=== PATIENT | male | born 1985 | race Caucasian/White ===

== ENCOUNTER 2016-11-02 13:57 | Emergency (ER) | payer OTHER ==
[2016-11-02] MEDS ORDERED: Sodium Chloride 0.9% 1,000 ML PRIMARY IV ONE (14:26)
[2016-11-02] MEDS ORDERED: NORMAL SALINE 10 ML SYRINGE FLUSH IVP PRN (14:26)
[2016-11-02] MEDS ORDERED: TAMSULOSIN 0.4 MG CAPSULE PO ONE (14:26)
[2016-11-02 14:33] VITALS: TEMP 97.7
[2016-11-02 14:51] LABS: BASOPHILS # (AUTO) 0.02 10*3/UL; BASOPHILS % (AUTO) 0.2 % (0-1); EOSINOPHILS % (AUTO) 0.5 % (0-8); HEMATOCRIT 41.8 % (42.0-52.0); HEMOGLOBIN 14.6 g/dL (14.0-18.0); IMM GRAN % (AUTO) 0.2 % (0-5); IMM GRAN# (AUTO) 0.02 10*3/UL; LYMPHOCYTES % (AUTO) 9.5 % (10-50); MEAN CORPUSCULAR HGB CONC 34.9 g/dL (33-37); MONOCYTES # (AUTO) 0.47 10*3/UL (0.3-0.8); NEUTROPHILS # (AUTO) 7.99 10*3/UL; NEUTROPHILS % (AUTO) 84.6 % (50-80); RDW COEFFICIENT OF VARIATION 12.7 % (11.5-14.5); RED BLOOD COUNT 5.04 10^6/uL (4.70-6.10); WHITE BLOOD COUNT 9.45 10^3/uL (4.8-10.8)
[2016-11-02 15:05] LABS: PLATELET MORPHOLOGY COMMENT NORMAL MORPHOLOGY (NORM)
[2016-11-02 15:30] LABS: ASPARTATE AMINO TRANSFERASE 28 IU/L (21-57); BILIRUBIN,TOTAL 0.9 mg/dL (0.3-1.2); BLOOD UREA NITROGEN 7 mg/dL (7-22); CALCIUM 9.1 mg/dL (8.7-10.7); CHLORIDE 104 meq/L (98-112); EST GLOMERULAR FILTRATION > 60 (>60 ml/min/1.73m(2)); GLUCOSE 100 mg/dL (78-110); POTASSIUM 3.5 meq/L (3.8-5.2); SODIUM 137 meq/L (135-145); TOTAL PROTEIN 7.6 g/dL (6.1-8.0)
[2016-11-02 16:21] LABS: BILIRUBIN,URINE NEGATIVE (NEG); CLARITY,URINE CLEAR (CLEAR); GLUCOSE, URINE (UA) NEGATIVE (NEG); LEUKOCYTE ESTERASE ,URINE NEGATIVE (NEG); NITRATE,URINE NEGATIVE (NEG); OCCULT BLOOD,URINE MODERATE (NEG); PH,URINE 7.5 (5.0-8.5); PROTEIN,URINE NEGATIVE (NEG); UROBILINOGEN,URINE 0.2 EU/dL (0.2)
[2016-11-02 16:28] LABS: URINE SAMPLE TYPE VOIDED SPECIMEN
--- NOTE | 2016-11-02 16:48 | DI ---
History: Right upper quadrant abdominal and flank pain Prior study: None. Procedure: Examination performed of the abdomen and pelvis in axial plane with sagittal and coronal r econstruction from the data set. 95 cc Isovue [address] DI 17.3, DLP 985 Findings: Tub Mender view shows surgical clips right upper quadrant. Bowel gas pattern unremarkable Sagittal view shows normal spine alignment. Lung base unremarkable. The liver spleen pancreas and adrenal glands are normal. Bowel gas pattern un remarkable. The patient has a single stone at the ureterovesical junction right side, 3 mm which is causing some ureteral dilatation. This probably account for patient's symptoms. No calculi noted elsewhere. Append ix normal. Bladder full but otherwise unremarkable. Impression: Impacted stone right ureterovesical junction causing dilatation of the ureter. Prior cholecystectomy
[2016-11-02 17:16] VITALS: RESP 16
--- NOTE | 2016-11-02 17:44 | PDOC ---
Male Genitourinary Problem HPI - General Chief Complaint: Genitourinary Complaint Stated Complaint: R Flank pain Date Seen by Provider: 11/02/16 Time Seen by Provider: 14:15 Source: POSITIVE: Patient Exam Limitations: POSITIVE: No limitations Nurse's Notes Reviewed & Considered: Yes - History of Present Illness Initial Comments: The patient is a 31-year-old male. At approximately 1045 he was talking on the phone and developed an abrupt onset of pain to his right flank radiating into his right groin. Patient has had a cholecystectomy. He vomited 2 at the onset. No fevers or chills. Some urinary urgency. He rated the intensity of his pain at its onset as 8 on a scale of 10 and upon arrival to the emergency room his pain has defervesced and he presently rates it as a 3 on a scale of 10. He states the pain is colicky in nature. No hematuria grossly. He states he has a past history of chronic back pain from "bulging disks". 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 DENIES: Problems Urinating, Burning, Pain, Hesitancy, Frequency, Small Amounts, Unable to Urinate, Blood in Urine, Blood in Ejaculate, Discharge from Penis, Yellow, Clear, Thick, Thin, Testicular Pain, Testicular Swelling, Penile Pain, Penile Swelling, Cannot Retract Foreskin, Cannot Replace Foreskin, Inguinal Mass, Flank Pain, Abdominal Pain, Left, Other Similar Symptoms Previously: No Recent Care Received: REPORTS: Denies Any Prior Injuries Related to Current Complaint?: No - Patient Home Medications Home Medications: Home Medications D-Methorphan/PE/Acetaminophen [Vicks Dayquil Liquid] 30 ml PO PRN PRN 11/02/16 HYDROcodone/APAP 10/325 Tab [[place] 10/325 Tab] 1 tab PO Q4H PRN #20 tab Methocarbamol 1,000 mg PO BID PRN 11/02/16 Naproxen Sodium [Aleve] 220 mg PO Q12H PRN 11/02/16 Tamsulosin HCl [Flomax] 0.4 mg PO DAILY #12 cap 11/02/16 - Patient Allergies Allergies/Adverse Reactions: Allergies Allergy/AdvReac Type Severity Reaction Status Date / Time ibuprofen AdvReac HEADACHE Verified 11/02/16 14:04 Past Medical History - heen HEENT History: Denies History Cardiovascular History: Denies History Respiratory History: Denies History Gastrointestinal History: Denies History Genitourinary History: Denies History Endocrine History: Denies History Musculoskeletal History: Back Pain Prosthesis or Implant: No Additional Musculoskeletal History: HAS BULGING DISCS AND HAS OCCASIONAL BACK PAIN. 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 LEFT ANKLE PINNING 12/29/12 Anesthesia Reactions: No Malignant Hyperthermia: No Significant Family History: No pertinent family hx Past Medical History Reviewed: Reviewed - No Changes ROS - Limitations ROS Limitations: No Limitations Constitution: REPORTS: Denies Symptoms Cardiovascular: REPORTS: Denies Cardiac Symptoms Respiratory: REPORTS: Denies Resp Symptoms Neurological: REPORTS: Denies Neuro Symptoms Gastrointestinal: REPORTS: Nausea Endocrine: REPORTS: Denies Symptoms Musculoskeletal: REPORTS: Denies MS Symptoms Genitourinary: REPORTS: Flank Pain (Right), Other (Urinary urgency) Eyes: REPORTS: Denies Symptoms ENT: REPORTS: Denies Symptoms Skin: REPORTS: Denies Skin Symptoms Lympathic: REPORTS: Denies Lympathic Symptoms Immunologic: POSITIVE: Denies Symptoms Psychiatric: POSITIVE: Denies Psych Symptoms Male Genitourinary Exam - General Appearance General Appearance: POSITIVE: Alert, Cooperative, No Acute Distress, No Evidence of Trauma - Abdomen Abdomen: Soft: (All Quadrants), Normal Bowel Sounds: (All Quadrants), Denies Tenderness: (All Quadrants), No Splenomegaly: (All Quadrants), No Hepatomegaly: (All Quadrants), No Guarding: (All Quadrants), No Rebound: (All Quadrants), No Palpable Pulse: (All Quadrants), No Palpabale Mass: (All Quadrants), No Distention: (All Quadrants), No Rigidity: (All Quadrants) - Genital / Rectal Genitals: POSITIVE: Normal Inspection, Circumcised - Neck Neck: POSITIVE: Normal Inspection, No Apparent Injury - Respiratory Respiratory: POSITIVE: No Respiratory Distress, Breath Sounds Normal, Chest Non- Tender - Cardiovascular Cardiovascular: POSITIVE: Regular Rate and Rhythm, Heart Sounds Normal, Equal Pulses, Strong Pulses Peripheral Pulses: Radial (R): 2+, Radial (L): 2+ - Back Back: POSITIVE: CVA Tenderness (R) (Mild on percussion) - Extremities Extremity: Non-Tender: (All Extremities), Normal ROM: (All Extremities), Normal Inspection: (All Extremities) - Neurological / Psychological Neurological: 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 Lab Results Reviewed: Yes Lab Results: Laboratory Results 11/02/16 11/02/16 Range/Units 14:40 16:11 WBC 9.45 (4.8-10.8) 10^3/uL RBC 5.04 (4.70-6.10) 10^6/uL Hgb 14.6 (14.0-18.0) g/dL Hct 41.8 L (42.0-52.0) % MCV 82.9 (80-90) FL MCH 29.0 (27-31) PG MCHC 34.9 (33-37) g/dL RDW Std Deviation 38.1 L (39-50) fL RDW Coeff of Johanny 12.7 (11.5-14.5) % Plt Count 203 (140-350) 10*3/uL MPV 11.0 (7.4-12.2) FL Immature Gran % (Auto) 0.2 (0-5) % Neut % (Auto) 84.6 H (50-80) % Lymph % (Auto) 9.5 L (10-50) % [place] % (Auto) 5.0 (5-15) % Eos % (Auto) 0.5 (0-8) % Baso % (Auto) 0.2 (0-1) % Immature Gran # (Auto) 0.02 10*3/UL Neut # (Auto) 7.99 10*3/UL Lymph # (Auto) 0.90 10*3/uL [place] # (Auto) 0.47 (0.3-0.8) 10*3/UL Eos # (Auto) 0.05 10*3/UL Baso # (Auto) 0.02 10*3/UL WBC Morphology Comment Normal morphology (NORM) Plt Morphology Comment Normal morphology (NORM) RBC Morph Comment Normal morphology (NORM) Sodium 137 (135-145) meq/L Potassium 3.5 L (3.8-5.2) meq/L Chloride 104 (98-112) meq/L Carbon Dioxide 21 L (23-33) meq/L Anion Gap 12 (5-20) BUN 7 (7-22) mg/dL Creatinine 1.0 (0.70-1.50) mg/dL Estimated GFR > 60 (>60 ml/min/1.73m(2)) BUN/Creatinine Ratio 7.00 (6-20) Glucose 100 (78-110) mg/dL Calculated Osmolality 281.0 (267-292) mOsm/kg Calcium 9.1 (8.7-10.7) mg/dL Total Bilirubin 0.9 (0.3-1.2) mg/dL AST 28 (21-57) IU/L ALT 37 (21-72) IU/L Alkaline Phosphatase 112 (38-126) IU/L Total Protein 7.6 (6.1-8.0) g/dL Albumin 4.4 (3.5-4.8) g/dL Globulin 3.2 (2.50-4.10) g/dL Albumin/Globulin Ratio 1.30 (1.3-2.0) mg/g Ur Collection Type Voided specimen Urine Color Yellow Urine Clarity Clear (CLEAR) Urine pH 7.5 (5.0-8.5) Ur Specific [place] 1.010 (1.005-1.030) Urine Protein Negative (NEG) mg/dl Urine Glucose (UA) Negative (NEG) mg/dL Urine Ketones Negative (NEG) Urine Occult Blood Moderate H (NEG) Urine Nitrate Negative (NEG) Urine Bilirubin Negative (NEG) Urine Urobilinogen 0.2 (0.2) EU/dL Ur Leukocyte Esterase Negative (NEG) Urine RBC 10-25 (NONE) /hpf Urine WBC None (NONE) Ur Squamous Epith Cells None (NONE) Ur Renal Epithelial Cell None (NONE) Urine Crystals None Urine Bacteria None (NONE) Urine Casts None (NONE) Urine Mucus None (NONE) Urine Trichomonas None (NONE) Urine Yeast None (NONE) Ur Culture Indicated? Culture not set - Patient's Progress Pain Medication Addressed: POSITIVE: Yes, Patient Refused School/Work Release Addressed: POSITIVE: Not Applicable Re-Examine Time:: 16:40 Re-Examine Comment: Patient has minimal pain on discharge. Diagnosis and treatment discussed with patient. Status: POSITIVE: Improved, Re-Examined - Consult Counseled: POSITIVE: Patient, RE: Lab Results, RE: Radiology Results, RE: DX, RE : Need for F/U Patient Care Time - Estimated PCT Patient Care Time (In Minutes): 35 Vital Signs - Recent Vital Signs Vital Signs: Vital Signs (Last 8 hours) Temp Pulse Pulse Resp BP BP Pulse Ox 11/02/16 17:14 80 16 108/64 98 11/02/16 14:00 97.7 F 90 18 129/87 100 - VS Reviewed Vital Signs Reviewed: Yes Discharge Clinical Impression: Renal colic, Ureterolithiasis Discharge Disposition: Discharged to Home Condition: Good Prescriptions / Orders: Tamsulosin HCl [Flomax] 0.4 mg PO DAILY #12 cap HYDROcodone/APAP 10/325 Tab [[place] 10/325 Tab] 1 tab PO Q4H PRN #20 tab PRN Reason: Pain Patient Instructions Given at Discharge: Kidney Stones (ED) Additional Instructions: You are passing a kidney stone. The stone is small and has almost completed its transit from the kidney to the bladder. Therefore I think he'll most likely pass this stone without to much difficulty. Please increase fluids. Strain your urine every time you urinate and check for the passage of a small stone. Flomax once daily until you have passed the stone. You may have some pain as the stone continues its transit into the bladder. Take hydrocodone/APAP , one every 4 hours as necessary for pain. Return anytime if condition worsens , especially if you develop fevers, chills, or persistent vomiting. Follow-up with urology in [place] if you have not passed a stone in 10-12 days. Follow Up With: NONE,NONE [Primary Care Provider] - (Instructions as above. Return anytime if condition worsens.)
== END 2016-11-02 17:10 | disposition home or self-care (01) ==
LOC: ER 13:57
DX: N23 Unspecified renal colic (principal); N20.1 Calculus of ureter; R10.31 Right lower quadrant pain
CPT/HCPCS: 74177; 80053; 81001; 81003; 85025; 96360; 96361; 99283; J7030